=== PATIENT | male | born 1970 | race Caucasian/White ===

== ENCOUNTER 2020-10-19 15:55 | Emergency (ER) | payer OTHER ==
[~2020-10-19] VITALS: Ht 185.4 cm; Wt 100.0 kg
[2020-10-19] MEDS ORDERED: IBUPROFEN 600MG TABLET PO STA (17:39)
[2020-10-19] MEDS ORDERED: IBUP-2029 MT (19:27)
[2020-10-19 19:44] VITALS: BP 121/85
== END 2020-10-19 19:55 | disposition home or self-care (01) ==
LOC: ER 15:55
DX: U07.1 COVID-19 (principal); M79.18 Myalgia, other site; R51.9 Headache, unspecified; I10 Essential (primary) hypertension
CPT/HCPCS: 71045; 99283